=== PATIENT | female | born 1955 | race African-American/Black ===

== ENCOUNTER 2016-12-29 17:34 | Observation (INO) ==
--- NOTE | 2016-12-29 18:09 | CT Report ---
Referring physician: ED Temporary Physician Exam: CT brain without contrast Date: 12/29/2016 Comparison: None Reason: Left facial arm and leg numbness with tingling Technique: Axial images of the head were obtained without the use of contrast. Total DLP was 1829.20 mGy*cm. Findings: No hydrocephalus or midline shift is present. There is no evidence of an acute infarction, recent intracranial hemorrhage or abnormal mass effect. Diffuse cerebral atrophy atrophy. The osseous structures appear intact. The mastoid air cells and visualized paranasal sinuses are clear. Impression: No acute intracranial abnormality is identified. Minimal cerebral atrophy. The CT exam was performed using one or more of the following dose reduction techniques: Automated exposure control and adjustment of the mA and/or kV according to patient size. PROCEDURE INTERPRETED AT [facility] DEPARTMENT OF RADIOLOGY Final Report Signed by: Dr. Ivelisse Yun
[2016-12-29] MEDS ORDERED: ASPIRIN 325 MG TABLET PO STA (19:21)
[2016-12-29] MEDS ORDERED: ASPIRIN 325 MG TABLET ONE (19:34)
--- NOTE | 2016-12-29 19:53 | XRay Report ---
Portable chest Date: 12/29/2016 Clinical history: Cardiomegaly Comparison: 01/31/2016 Technique: Portable AP sitting chest Findings: The heart is larger in size with uncoiling of the aorta. Progressive parenchymal findings at the lung bases with prominent pulmonary vasculature. Degenerative changes are noted. Impression: Progressive cardiomegaly with findings consistent with mild CHF. PROCEDURE INTERPRETED AT [facility] DEPARTMENT OF RADIOLOGY Final Report Signed by: Dr. Ivelisse Yun
[2016-12-29 19:59] LABS: Basophils % 0.3 % (0.0-0.8); Eosinophils # 0.1 10*3/uL (0.0-0.87); Eosinophils % 1.2 % (0.00-10.9); Hematocrit 43.6 VOL% (35.7-47.0); Hemoglobin 14.9 GM/DL (12.0-16.0); Immature Granulocytes % 0.3 %; Immature Granulocytes Absolute 0.04 #; Lymphocytes # 3.9 10*3/uL (1.4-4.0); Lymphocytes % 34.2 % (21.3-54.2); Mean Corpuscular HGB Conc 34.2 GM/DL (32-36); Mean Corpuscular Hemoglobin 29 PG (27-34); Mean Corpuscular Volume 85.5 FL (87-102); Mean Platelet Volume 10.6 FL (9.6-12.0); Monocytes # 0.8 10*3/uL (0.11-0.8); Monocytes % 6.5 % (1.7-12.7); Neutrophils # 6.6 10*3/uL (1.4-7.4); Neutrophils % 57.5 % (38.7-73.9); Platelet Count 203 T/CUMM (130-400); Red Cell Distribution Width 13.5 % (9.3-17.3); White Blood Count 11.5 T/CUMM (4-12)
[2016-12-29 20:05] LABS: Alanine Aminotransferase 22 U/L (13-56); Albumin 3.5 G/DL (3.4-5.0); Alkaline Phosphatase 103 U/L (45-117); Aspartate Amino Transferase 20 U/L (0-37); Blood Urea Nitrogen 9 MG/DL (7-18); Calcium 9.1 MG/DL (8.5-10.1); Glucose 108 MG/DL (74-106); Osmolality,Calculated 276.5 MOS/KG (273-304); Potassium 3.5 MMOL/L (3.5-5.1); Sodium 139 MMOL/L (136-145)
[2016-12-29 20:06] LABS: PT Patient Result 10.6 SECS; Partial Thromboplastin Time 28.2 SECS (0-40)
--- NOTE | 2016-12-29 20:13 | Emergency Department Note ---
Fabien Hobson Brittany, am scribing for, and in the presence of, Bjorn Zimmerman MD 19:27. Erasmo Hobson Charles R, MD, personally performed the services described in this documentation, ascribed by Rossy Conn in my presence, and it is both accurate and complete . Arrival - Arrival Chief Complaint: Neuro Stated Complaint: numbness on sides ED Nursing Triage Note: Pt c/o Numbness/tingling in her left face, arm, and leg since 1345. Mode of Arrival: Ambulatory Limitations: No Limitations Source: Patient - History of Present Illness HPI Narrative: This is a 61 y/o black female, who presents to the ED for further neurological evaluation. She states today at 1345 she started to experience left sided facial numbness, LLE and LUE numbness. She denies a Hx of CVA. Pt denies any pain but reports her left leg "feels as if it is not there." Pt has no other complaints/pain in the ED at this time. Pt has a PMHx of HTN, anxiety, thyroid disorder, dyslipidemia, NIDDM, and cholelithiasis. Pt has had a hysterectomy. Pt has a family medical Hx of diabetes. Pt is a current every day smoker. Onset (ago): hour(s) (Started at 1345 today) Consistency: constant Severity: moderate Allergies/Adverse Reactions: Allergies Allergy/AdvReac Type Severity Reaction Status Date / Time No Known Allergies Allergy Verified 01/31/16 13:38 Home Medications: Home Medications Medication Instructions Recorded Confirmed Type Lisinopril/Hydrochlorothiazide 1 each PO DAILY 03/14/15 12/29/16 History [Lisinopril-Hctz 20-12.5 mg Tab] Citalopram Hydrobromide 10 mg PO DAILY 12/29/16 12/29/16 History [Citalopram HBr] Lovastatin 40 mg PO QPM 12/29/16 12/29/16 History Metformin HCl 1,000 mg PO BID W/MEALS 12/29/16 12/29/16 History glipiZIDE [Glipizide ER] 10 mg PO BID 12/29/16 12/29/16 History sitaGLIPtin [Januvia] 100 mg PO DAILY 12/29/16 12/29/16 History Review of System - Review of System 12 point system: reviewed and no additional remarkable complaints except as stated - Review of System Neurological: Present: weakness (Left sided facial, LLE, and LUE weakness), numbness (Left sided facial, LLE, and LUE numbness) Medical,Surgical,& Family Hx - Medical History Cardio: History of: Hypertension Psychological: History of: Anxiety Disorders Endocrine: History of: Diabetes Mellitus (NIDDM), Dyslipidemia, Thyroid Disorder (Hyperthyroid) Gastrointestinal: History of: GI Problems (cholelithiasis) - Surgical History Cardiac Surgeries: Patient Denies: Cardiac Catheterization Abdominal Surgeries: Patient denies: Abdominal Surgery Reproductive Surgeries: Surgical HX of;: Hysterectomy - Family History Family History: Reports;: Family Diabetes - Social History Smoking Status: Current every day smoker Exam Vital Signs: Vital Signs Temperature 98.0 F 12/29/16 17:45 Pulse Rate 74 12/29/16 18:30 Respiratory Rate 17 12/29/16 18:30 Blood Pressure 132/69 12/29/16 18:30 O2 Sat by Pulse Oximetry 98 12/29/16 18:30 - General General appearance: alert, in no apparent distress - Head Head exam: Present: atraumatic, normocephalic, normal inspection - Eye Eye exam: Present: normal appearance, PERRL, EOMI. Absent: nystagmus, miosis, mydriasis - ENT ENT exam: Present: normal exam, normal oropharynx, mucous membranes moist, TM's normal bilaterally, normal external ear exam - Neck Neck exam: Present: normal inspection, full ROM, trachea midline. Absent: tenderness, meningismus, lymphadenopathy, thyromegaly - Chest Chest inspection: Present: normal inspection, symmetric chest wall rise. Absent : tenderness, rash, abscess - Respiratory Respiratory exam: Present: rhonchi (Bilateral rhonic). Absent: normal lung sounds bilaterally, prolonged expiratory phase, rales, respiratory distress, stridor, wheezes - Cardiovascular Cardiovascular exam: Present: regular rate, normal rhythm, normal heart sounds. Absent: murmur, rubs, gallop, clicks, JVD - Abdominal Exam Abdominal exam: Present: soft, normal bowel sounds. Absent: distention, tenderness, guarding, rebound, rigidity - Rectal Exam Rectal exam: Present: deferred - Extremities Exam Extremities exam: Present: normal inspection, full ROM, normal capillary refill. Absent: tenderness, pedal edema, joint swelling, calf tenderness - Back Exam Back exam: Present: normal inspection, full ROM. Absent: tenderness, muscle spasm, rashes - Neurological Exam Neurological exam: Present: alert, oriented X3, CN II-XII intact, reflexes normal, other (-Babinski sign ). Absent: motor sensory deficit - Psychiatric Psychiatric exam: Present: normal affect, normal mood. Absent: depressed, agitated, anxious, manic - Skin Skin exam: Present: warm, dry, intact, normal color. Absent: rash, cyanosis, diaphoresis, erythema, pallor, mottled Course - Consultations Consultation #1: Dr Jose thinks pt should be admitted to the hospital for further workup Time: 20:12 Consultation #2: Hospitalist will admit patient Time: 20:44 Results - Labs CBC & BMP: 12/29/16 18:34 12/29/16 18:34 Lab Results: I have reviewed the patients labs - Diagnostic Findings Procedure: Chest x-ray: report reviewed by me (Progressive cardiomegaly with findings consistent with mild CHF.), CT: report reviewed by me (Head CT: Nothing acute. Minimla cerebral atrophy. ) Disposition Clinical Impression: Transient cerebral ischemia, Hypertension, Essential hypertension Case discussed with: patient, patient's family Disposition: Still a Patient Condition: Stable Time of Disposition: 20:45 NIH Stroke Score - Stroke Score Initial Assessment Level of Consciousness: Alert Level of Consciousness Questions: Answers Both Correctly Level of Consciousness Commands: Obeys Both Correctly Best Gaze: Normal Visual Head: No Visual Loss Facial Palsy: Normal Motor - Right Arm: No Drift Motor - Left Arm: No Drift Motor - Right Leg: No Drift Motor - Left Leg: No Drift Sensory (Pin Prick): Normal Best Language: Normal Dysarthria: Normal Extinction / Inattention (Neglect): No Neglect
[2016-12-29] MEDS ORDERED: MORPHINE 2 MG/1 ML SYRINGE IV PRN (21:34)
[2016-12-29] MEDS ORDERED: ONDANSETRON 4 MG/2 ML VIAL IV PRN (21:34)
[2016-12-29] MEDS ORDERED: DEXTROSE 50% 25 GM/50 ML VIAL IV PRN (21:34)
[2016-12-29] MEDS ORDERED: PROMETHAZINE 25 MG/1 ML VIAL IM PRN (21:34)
[2016-12-29] MEDS ORDERED: GLUCAGON 1 MG VIAL IM PRN (21:34)
[2016-12-29] MEDS ORDERED: ACETAMINOPHEN 325 MG TABLET PO PRN (21:34)
[2016-12-29] MEDS ORDERED: BISACODYL 5 MG TABLET PO PRN (21:34)
--- NOTE | 2016-12-29 21:38 | Hospitalist History & Physical ---
Assessment and Plan (1) TIA (transient ischemic attack) Status: Acute Current Visit: Yes Qualifiers: Transient cerebral ischemia type: unspecified Qualified Code(s): G45.9 - Transient cerebral ischemic attack, unspecified (2) Type 2 diabetes mellitus Status: Acute Current Visit: Yes Qualifiers: Diabetes mellitus complication status: with unspecified complications Diabetes mellitus skilled nursing insulin use: without skilled nursing use Qualified Code( s): E11.8 - Type 2 diabetes mellitus with unspecified complications (3) Essential hypertension Status: Acute Current Visit: Yes (4) Smoker Status: Acute Current Visit: Yes (5) Dyslipidemia Status: Acute Assessment and plan: Plan: Observe overnight, and perform neurological workup including MRI/MRA of the brain, echo, and neurology consultation Start aspirin daily She has multiple risk factors for stroke including hypertension, diabetes, dyslipidemia and smoking. Smoking cessation was very strongly encouraged. Current Visit: Yes History of Present Illness Chief complaint: Acute onset of left upper extremity numbness and tingling this afternoon History of present illness: Ms. Olivares is a 61 year old very pleasant female with hypertension, type 2 diabetes, pack-a-day smoker, reported peripheral vascular disease (unclear if any intervention is ever been done, patient was seen at [facility] for this), who is here with left upper extremity numbness and tingling that started earlier this afternoon after she had a thyroid ultrasound. She is also noted intermittent dizziness over the last week, no falls. She states she has chronic waxing and waning numbness and tingling of the left leg, which is unchanged from baseline. She denies chest pain, palpitations, shortness of breath, headache, or visual disturbance. She states her symptoms have lessened however the numbness and tingling are still present. She is right-handed. She has no known coronary artery disease or CHF. Home Medications Medication Instructions Recorded Confirmed Type Lisinopril/Hydrochlorothiazide 1 each PO DAILY 03/14/15 12/29/16 History [Lisinopril-Hctz 20-12.5 mg Tab] Citalopram Hydrobromide 10 mg PO DAILY 12/29/16 12/29/16 History [Citalopram HBr] Lovastatin 40 mg PO QPM 12/29/16 12/29/16 History Metformin HCl 1,000 mg PO BID W/MEALS 12/29/16 12/29/16 History glipiZIDE [Glipizide ER] 10 mg PO BID 12/29/16 12/29/16 History sitaGLIPtin [Januvia] 100 mg PO DAILY 12/29/16 12/29/16 History Allergies Allergy/AdvReac Type Severity Reaction Status Date / Time No Known Allergies Allergy Verified 01/31/16 13:38 Medical,Surgical,& Family Hx - Medical History Cardio: History of: Hypertension Psychological: History of: Anxiety Disorders Endocrine: History of: Diabetes Mellitus (NIDDM), Dyslipidemia, Thyroid Disorder (Hyperthyroid) - Surgical History Abdominal Surgeries: Surgical HX of: Cholecystectomy Reproductive Surgeries: Surgical HX of;: Hysterectomy - Family History Family History: Reports;: Family Diabetes - Social History Smoking Status: Current every day smoker Have you smoked in the last 12 months: Yes Time spent discussing smoking cessation with patient: 3 to 10 minutes Frequency of Alcohol Use: None Type of Drug Use: None Marital Status: Unknown Functional capacity: independent ambulation Review of systems: A 12 point review of systems is negative except as specified in the HPI Exam - Constitutional Vitals: Period Temp Pulse Resp BP Sys/Ceja Pulse Ox Last 24 Hr 98.0 F-98.0 F 74-78 16-18 132-135/69-79 97-99 Exam: EXAM: CONSTITUTIONAL: non toxic, NAD HEENT: NC, AT, OP benign, MARY, EOMI CV: RRR no m/g/r RESP: clear B/L, no w/r/r GI: abd soft, NT, ND, +bowel sounds INTEGUMENTARY: no lesions or rash EXTREMITIES: no c/c/e NEURO: Tongue deviation to the right, mildly decreased left upper extremity strength, no dysarthria, cranial nerves intact PSYCH: unremarkable, A/O x3 Results - Labs CBC & BMP: 12/29/16 18:34 12/29/16 18:34 Lab Results: I have reviewed the past 24 hour labs - Diagnostic Findings Procedure: Chest x-ray: image reviewed by me, report reviewed by me, CT: image reviewed by me, report reviewed by me Quality Measures - Stroke Onset of Symptoms Date: 12/29/16 Onset of Symptoms Time: 13:00 Symptom Onset Unknown: No
[2016-12-29] MEDS ORDERED: ENOXAPARIN 40 MG/0.4 ML SYRINGE SUBCUT SCH (22:00)
[2016-12-29 22:03] LABS: Apearance,Urine Slightly Hazy (Clear); Bacteria,Urine Few /HPF (Few); Bilirubin,Urine Negative (Negative); Blood, Urine Negative (Negative); Glucose,Urine (UA) Negative (Negative); Ketones,Urine Negative (Negative); Mucus,Urine Few /LPF (Occasional); Nitrite,Urine Negative (Negative); Protein,Urine Negative; Squamous Epithelial Cell,Urine Occasional /HPF (0-10); Urine Color Yellow (Yellow); Urine Specific Gravity 1.011 (1.001-1.035); Urine Urobilinogen < 2.0 EU/DL (0.2-1.0); WBC,Urine 1 /HPF (0-6)
[2016-12-29 22:20] LABS: Barbiturates Screen,Urine Negative (Negative); Benzodiazepines Screen,Urine Negative (Negative); Cannabinoid Screen,Urine Negative (Negative); Opiate Screen,Urine Negative (Negative); Phencyclidine Screen,Urine Negative (Negative)
[2016-12-29] MEDS ORDERED: LORazepam 1 MG TABLET PO ONE (23:09)
[2016-12-30 04:52] LABS: Basophils % 0.4 % (0.0-0.8); Eosinophils # 0.1 10*3/uL (0.0-0.87); Eosinophils % 1.5 % (0.00-10.9); Hematocrit 40.6 VOL% (35.7-47.0); Hemoglobin 13.8 GM/DL (12.0-16.0); Immature Granulocytes % 0.4 %; Immature Granulocytes Absolute 0.03 #; Lymphocytes # 2.7 10*3/uL (1.4-4.0); Lymphocytes % 31.9 % (21.3-54.2); Mean Corpuscular Hemoglobin 29 PG (27-34); Mean Corpuscular Volume 84.6 FL (87-102); Mean Platelet Volume 9.5 FL (9.6-12.0); Monocytes # 0.6 10*3/uL (0.11-0.8); Monocytes % 6.6 % (1.7-12.7); Neutrophils % 59.2 % (38.7-73.9); Platelet Count 179 T/CUMM (130-400); Red Cell Distribution Width 13.4 % (9.3-17.3); White Blood Count 8.5 T/CUMM (4-12)
[2016-12-30 05:32] LABS: Calcium 8.6 MG/DL (8.5-10.1); Osmolality,Calculated 278.4 MOS/KG (273-304); Potassium 3.3 MMOL/L (3.5-5.1); Risk Ratio 2.94; Thyroid Stimulating Hormone 0.113 uIU/ml (0.358-3.74); VLDL CHOLESTEROL 29.8 MG/DL
[2016-12-30] MEDS ORDERED: metFORMIN 500 MG TABLET PO SCH (08:00)
[2016-12-30] MEDS: INSULIN REGULAR 100 UNIT/ML SUBCUT SCH ×2 (08:24→13:32)
[2016-12-30] MEDS ORDERED: LORazepam 1 MG TABLET PO ONE (09:00)
[2016-12-30] MEDS ORDERED: LISINOPRIL/HCTZ 20-12.5 MG TABLET PO SCH (09:00)
[2016-12-30] MEDS ORDERED: sitaGLIPtin 100 MG TABLET PO SCH (09:00)
[2016-12-30] MEDS ORDERED: ASPIRIN EC 325 MG TABLET PO SCH (09:00)
[2016-12-30] MEDS ORDERED: CITALOPRAM 20 MG TABLET PO SCH (09:00)
[2016-12-30] MEDS ORDERED: PANTOPRAZOLE 40 MG TABLET PO SCH (09:00)
[2016-12-30] MEDS ORDERED: POTASSIUM CHLORIDE 20 MEQ TABLET PO ONE (09:40)
--- NOTE | 2016-12-30 13:20 | Hospitalist Progress Note ---
Assessment and Plan (1) Transient cerebral ischemia Status: Acute Assessment and plan: 1)TIA- MRi pending and also neuro consult. On asa, control DM and HTN, on statin. counselled again for 5 minutes about tobacco cessation. 2)DM-controlled. [id number] 3)HTN-controlled 4)high cholesterol-goal LDL is under 70 Current Visit: Yes (2) Diabetes mellitus Status: Acute Current Visit: No (3) Essential hypertension Status: Acute Current Visit: Yes (4) Smoker Status: Acute Current Visit: Yes (5) Dyslipidemia Status: Acute Current Visit: Yes Hospitalist: Subjective Interval history: Mrs Olivares is feeling back to normal this morning. She is waiting on MRI and to see DR Arroyo. Her numbness and tingling in her left arm has resolved. She denies any other focal neuro change Exam - Constitutional Vitals: Period Temp Pulse Resp BP Sys/Ceja Pulse Ox Last 24 Hr 97.6 F-98.9 F 65-92 16-20 110-135/69-79 92-99 General appearance: no acute distress, over weight - Eye Eye exam: Present: EOMI. Absent: scleral icterus - Respiratory Respiratory exam: Present: clear to auscultation bilaterally - Cardiovascular Cardiovascular exam: Present: regular rate and rhythm - GI/Abdominal GI/Abdominal exam: Present: normal bowel sounds, soft. Absent: tenderness - Extremities Exam Extremities exam: Absent: edema Results - Labs CBC & BMP: 12/30/16 04:30 12/30/16 04:30 Quality Measures - Stroke Onset of Symptoms Date: 12/29/16 Onset of Symptoms Time: 13:00 Symptom Onset Unknown: No
--- NOTE | 2016-12-30 13:54 | Magnetic Resonance Report ---
Exam: MR angio head wo con (COW) Date: 12/30/2016 4:00 AM Indication: TIA Comparison: CT brain 12/29/2016 Technical 1.5 Carlyn magnet. Axial 3-D imaging obtained with 3-D reproduction images of the [place]. Exam performed without contrast. Findings: The anterior cerebral middle cerebral arteries and posterior cerebral arteries are demonstrated without obvious aneurysm. The anterior communicating arteries faintly seen. The posterior communicating arteries or poorly delineated. The basilar artery is intact.. The internal carotid arteries are otherwise intact. Impression: 1. No obvious aneurysm or high-grade stenosis or occlusion present. PROCEDURE INTERPRETED AT [facility] DEPARTMENT OF RADIOLOGY Final Report Signed by: Dr. Maik Reyes
--- NOTE | 2016-12-30 13:58 | Magnetic Resonance Report ---
Exam: MR angio neck wo/w con Date: 12/30/2016 Indication: TIA Comparison: None Technical 1.5 Carlyn magnet 3-D axial and coronal imaging obtained with and without 20 cc of Dotarem. 3-D reproduction images were obtained. Findings: The brachiocephalic artery right and left common carotid arteries are unremarkable. The subclavian arteries are intact. The vertebral arteries are demonstrated with a dominant left vertebral artery present. The right common carotid artery, internal and external carotid artery demonstrated. No significant high-grade stenosis or dilatation of the ICA noted. The distal vessel measures 4.7 mm. The left common carotid artery internal and external carotid are demonstrated without high-grade stenosis or occlusion. The distal vessel measures 4.7 mm. Mild plaque within the takeoff of the left ICA present. Impression: 1. No high-grade stenosis or occlusion of the internal carotid arteries with mild plaque present left greater than right. These measure stenosis is less than 50%. 2. Dominant left vertebral artery. PROCEDURE INTERPRETED AT [facility] DEPARTMENT OF RADIOLOGY Final Report Signed by: Dr. Maik Reyes
--- NOTE | 2016-12-30 14:02 | Magnetic Resonance Report ---
Exam: MR head/brain w and wo con Date: 12/30/2016 Comparison: None Indication: TIA Technical: 1.5 Carlyn magnet Axial T1 pre-and postcontrast, ADC, DWI, FLAIR, gradient echo and FSE T2 Sagittal T1 precontrast, FLAIR Coronal postcontrast T1 Contrast: 20 cc Dotarem Findings: Exam reveals no acute ADC/ diffusion imaging. The brainstem, cerebellum exhibit normal signal characteristics. The cerebral hemispheres exhibit abnormal signal characteristics. Exam reveals punctate and blotchy areas of abnormal signal in the periventricular subcortical white matter regions bilaterally extending into the centrum semiovale areas and basal ganglia regions. The corpus callosum is unremarkable. The seventh and eighth cranial nerves and cerebral pontine angles are intact. The pituitary gland, infundibulum and optic chiasm are intact. The paranasal sinuses exhibit abnormal signal characteristics. There is mild inflammation within the frontal sinuses in the ethmoid air cells anteriorly. Sphenoid maxillary sinuses are unremarkable. The mastoid sinuses are unremarkable. The globes and intra-and extraconal spaces are unremarkable. Impression: 1. Minimal small vessel change and/or old lacunar infarction involving the periventricular subcortical white matter regions slightly more prominent right than the left centrum semiovale area. 2. No acute hemorrhage infarction or mass effect. 3. Minimal inflammation in the ethmoid sinuses and frontal sinuses bilaterally PROCEDURE INTERPRETED AT [facility] DEPARTMENT OF RADIOLOGY Final Report Signed by: Dr. Maik Reyes
--- NOTE | 2016-12-30 14:30 | ECHO Report ---
Yvette Olivaresline Exam Date: 12/30/2016 09:03 Referring Physician: Technologist: ginger Meza ARDMS, RVT Age: 61 Ht (in): 66 Wt (lb): 187 Gender: F Exam [facility]: [facility] Echo Indications: Essential (primary) hypertension, CVA, Dyslipidemia, Diabetes, TIA BP: 110 / 69 HR: 92 Rhythm: Sinus Technical Quality: Fair IMPRESSIONS Left ventricular ejection fraction is estimated at 60 %. Grade I/IV diastolic dysfunction (abnormal relaxation filling pattern), normal to mildly elevated filling pressures. The right ventricle is normal in size and function. The right atrium is normal in size. The left atrium is normal in size. Morphologically normal mitral valve. No mitral valve regurgitation. Aortic valve sclerosis. Trace aortic valve regurgitation. Mild TR . PAP40 mmHG. Pulmonic valve not well visualized. Normal pericardium without effusion. Normal ascending aorta dimension. No LV or LA clot seen. MEASUREMENTS (Male / Female) Normal Values 2D ECHO LV Diastolic Diameter PLAX 4.4 cm 4.2 - 5.9 / 3.9 - 5.3 cm LV Systolic Diameter PLAX 2.1 cm LV Fractional Shortening PLAX 51.4 % IVS Diastolic Thickness 1.0 cm 0.6 - 1.0 / 0.6 - 0.9 cm LVPW Diastolic Thickness 1.1 cm 0.6 - 1.0 / 0.6 - 0.9 cm RV Internal Dim ED PLAX 3.0 cm Aortic Root Diameter 3.3 cm LA Systolic Diameter LX 3.4 cm 3.0 - 4.0 / 2.7 - 3.8 cm FINDINGS Left Ventricle Normal left ventricular cavity size. Mild left ventricular hypertrophy. Grade I/IV diastolic dysfunction (abnormal relaxation filling pattern), normal to mildly elevated filling pressures. Left ventricular ejection fraction is estimated at 60 %. Right Ventricle The right ventricle is normal in size and function. Right Atrium The right atrium is normal in size. Left Atrium The left atrium is normal in size. Mitral Valve Morphologically normal mitral valve. No mitral valve regurgitation. Aortic Valve Aortic valve sclerosis. Trace aortic valve regurgitation. Tricuspid Valve Morphologically normal tricuspid valve. Mild TR .PAP40 mmHG. Pulmonic Valve Pulmonic valve not well visualized. Pericardium Normal pericardium without effusion. Aorta Normal ascending aorta dimension. Noah Diego (Electronically Signed) Final Date: 30 December 2016 14:29
--- NOTE | 2016-12-30 15:41 | Neurology Consult Note ---
History of Present Illness History of present illness: Ms. Olivares is a 61 year old right-handed -[place] lady with past medical history significant for hypertension, type 2 diabetes, pack-a-day smoker, peripheral vascular disease admitted to the hospital with left upper extremity numbness and tingling that started yesterday afternoon after she had a thyroid ultrasound. She is also noted intermittent dizziness over the last week, no falls. She states she has chronic waxing and waning numbness and tingling of the left leg, which is unchanged from baseline. She denies chest pain, palpitations, shortness of breath, headache, or visual disturbance. She states that the symptoms have resolved completely. She has no known coronary artery disease or CHF. MRI of the brain, carotid ultrasound and echocardiogram are all within normal limits. Lipid profile is normal. Home Medications Medication Instructions Recorded Confirmed Type Lisinopril/Hydrochlorothiazide 1 each PO DAILY 03/14/15 12/29/16 History [Lisinopril-Hctz 20-12.5 mg Tab] Citalopram Hydrobromide 10 mg PO DAILY 12/29/16 12/29/16 History [Citalopram HBr] Lovastatin 40 mg PO QPM 12/29/16 12/29/16 History Metformin HCl 1,000 mg PO BID W/MEALS 12/29/16 12/29/16 History glipiZIDE [Glipizide ER] 10 mg PO BID 12/29/16 12/29/16 History sitaGLIPtin [Januvia] 100 mg PO DAILY 12/29/16 12/29/16 History Allergies Allergy/AdvReac Type Severity Reaction Status Date / Time No Known Allergies Allergy Verified 01/31/16 13:38 12 point system: reviewed and no additional remarkable complaints except as stated Medical,Surgical,& Family Hx - Medical History Cardio: History of: Hypertension Psychological: History of: Anxiety Disorders Endocrine: History of: Diabetes Mellitus (NIDDM), Dyslipidemia, Thyroid Disorder (Hyperthyroid) Gastrointestinal: History of: GI Problems (cholelithiasis) - Surgical History Cardiac Surgeries: Patient Denies: Cardiac Catheterization Abdominal Surgeries: Surgical HX of: Cholecystectomy Patient denies: Abdominal Surgery Reproductive Surgeries: Surgical HX of;: Hysterectomy - Family History Family History: Reports;: Family Diabetes - Social History Smoking Status: Current every day smoker Frequency of Alcohol Use: None Type of Drug Use: None Exam - Constitutional Vitals: Period Temp Pulse Resp BP Sys/Ceja Pulse Ox Last 24 Hr 97.0 F-98.9 F 65-92 16-20 110-135/61-79 92-99 Exam: GENERAL: Patient is in no acute distress. NECK: Neck is supple. There is no JVD. No carotid bruits present. No thyroid masses. CVS: First and second heart sounds are normal. There is no S3 present. Regular rate and rhythm. RESPIRATORY: Lungs are clear to auscultation without any rales or rhonchi. ABDOMEN: Soft and non-tender. Bowel sounds are present. There is no hepatosplenomegaly. EXT: There is no palpable edema. Peripheral pulses are present. Skin: No rashes Central Nervous system: General: Alert, awake and Oriented x 3 Speech: Fluent Comprehension: Intact and normal Facial expressions: Normal Cranial Nerves: CN1/Olfactory: Normal CN II/ Optic: Normal, Visual Head unreliable CN III, and : MARY & EOMI CN V: Normal & intact CN VII: face is symmetric CNVIII: Normal CN XI/X/XI/XII: Intact and Normal Motor: Bulk and Tone is normal. Strength in the right 5/5 Strength in the left 5/5 Sensory: Grossly intact for all the modalities of PP, LT and temp sense Reflexes: 1+ and symmetrical Cerebellar function: Normal finger to nose and heel to murcia testing. Toes: Equivocal Gait: Slightly broad-based Results - Labs CBC & BMP: 12/30/16 04:30 12/30/16 04:30 Assessment and Plan (1) TIA (transient ischemic attack) Status: Acute Assessment and plan: Start and continue aspirin 81 mg p.o. daily Discussed all the risk factors of the stroke with the patient Okay to go home from neuro standpoint Follow-up in 1 month with at [facility] Thank you for the consult Sign off please call as needed Current Visit: Yes Qualifiers: Transient cerebral ischemia type: unspecified Qualified Code(s): G45.9 - Transient cerebral ischemic attack, unspecified Specialty Discharge - Follow Up or Referrals Follow up with: Dylan Ulloa MD [Physician] - 2 Weeks (At [facility])
--- NOTE | 2016-12-30 16:22 | Discharge Summary ---
Hospital Course - Hospital Course Hospital Course: Mrs Olivares had a TIA. Her symptoms have resolved, and her MRI brain MRA head and neck and echo were unremarkable. She will see Dr Ulloa in 2 weeks. She should start asa and follow low cholesterol diet in addition to Mevacor. - Time spent with patient Time with patient DS: Less than 30 minutes Diagnosis - Discharge Diagnosis (1) Transient cerebral ischemia Status: Resolved (2) Diabetes mellitus Status: Chronic (3) Essential hypertension Status: Chronic (4) Smoker Status: Chronic (5) Dyslipidemia Status: Chronic Specialty Discharge - Follow Up or Referrals Follow up with: Dylan Ulloa MD [Physician] - 01/14/17 9:45 am (At [facility]) Your, PCP [Other] (1 week) Discharge Plan - Discharge Data Disposition: Disch To Home/Self Care Condition at Discharge: Stable Discharge Diet: diabetic diet, heart healthy, low fat, low cholesterol Activity: resume usual activities as tolerated - Discharge Medications New Aspirin EC Tab 325 mg PO DAILY tablet Continue Lisinopril/Hydrochlorothiazide [Lisinopril-Hctz 20-12.5 mg Tab] 1 each PO DAILY glipiZIDE [Glipizide ER] 10 mg PO BID Metformin HCl 1,000 mg PO BID W/MEALS sitaGLIPtin [Januvia] 100 mg PO DAILY Lovastatin 40 mg PO QPM Citalopram Hydrobromide [Citalopram HBr] 10 mg PO DAILY - Follow Up or Referral Follow Up: Dylan Ulloa MD [Physician] - 01/14/17 9:45 am (At [facility]) - Forms/Instructions Instructions: Transient Ischemic Attack (DC), Chronic Hypertension (DC) Exam - Constitutional Vitals: Period Temp Pulse Resp BP Sys/Ceja Pulse Ox Last 24 Hr 97.0 F-98.9 F 65-92 16-20 110-135/61-79 92-99 General appearance: no acute distress, over weight - Head Head exam: Present: normocephalic, atraumatic - Eye Eye exam: Present: EOMI. Absent: scleral icterus - Respiratory Respiratory exam: Present: clear to auscultation bilaterally - Cardiovascular Cardiovascular exam: Present: regular rate and rhythm - GI/Abdominal GI/Abdominal exam: Present: normal bowel sounds, soft. Absent: tenderness - Extremities Exam Extremities exam: Absent: edema - Neurological Exam Neurological exam: Present: alert, oriented X3, CN II-XII intact, reflexes normal. Absent: motor sensory deficit - Skin Skin exam: Present: warm, dry Discharge Results Labs on day of discharge: Labs from last 24 hours 12/30/16 12/30/16 12/30/16 13:26 07:29 04:30 WBC RBC Hgb Hct MCV MCH MCHC RDW Plt Count MPV Neut % (Auto) Lymph % (Auto) Stanton % (Auto) Eos % (Auto) Baso % (Auto) Neut # (Auto) Lymph # (Auto) Stanton # (Auto) Eos # (Auto) Baso # (Auto) Immature Gran % Nucleated RBC % Immature Gran # Nucleated RBCs # INR PT Patient/Control Mix Circ Anticoag PTT Sodium Potassium Chloride Carbon Dioxide Anion Gap BUN Creatinine GFR Calculation BUN/Creatinine Ratio Glucose POC Glucose 107 H 171 H Hemoglobin A1c 8.4 H Calculated Osmolality Calcium Magnesium Total Bilirubin AST ALT Alkaline Phosphatase Troponin I Total Protein Albumin Globulin Albumin/Globulin Ratio Triglycerides Cholesterol LDL Cholesterol VLDL Cholesterol HDL Cholesterol Heart Disease Risk Ratio Free T4 TSH 3rd Generation Urine Color Urine Appearance Urine pH Ur Specific [place] Urine Protein Urine Glucose (UA) Urine Ketones Urine Blood Urine Nitrate Urine Bilirubin Urine Urobilinogen Urine Leukocytes Urine WBC Ur Squamous Epith Cells Urine Bacteria Urine Mucus Ur Culture Indicated? Urine Opiates Screen Ur Barbiturates Screen Ur Phencyclidine Scrn U Amphetamine/Methamph U Benzodiazepines Scrn U Cocaine Metab Screen U Cannabinoids Screen Serum Alcohol 12/30/16 12/30/16 12/30/16 04:30 04:30 04:30 WBC 8.5 RBC 4.80 Hgb 13.8 Hct 40.6 MCV 84.6 L MCH 29 MCHC 34.0 RDW 13.4 Plt Count 179 MPV 9.5 L Neut % (Auto) 59.2 Lymph % (Auto) 31.9 Stanton % (Auto) 6.6 Eos % (Auto) 1.5 Baso % (Auto) 0.4 Neut # (Auto) 5.0 Lymph # (Auto) 2.7 Stanton # (Auto) 0.6 Eos # (Auto) 0.1 Baso # (Auto) 0.0 Immature Gran % 0.4 Nucleated RBC % 0.0 Immature Gran # 0.03 Nucleated RBCs # 0.00 INR PT Patient/Control Mix Circ Anticoag PTT Sodium 140 Potassium 3.3 L Chloride 102 Carbon Dioxide 31 Anion Gap 10.3 BUN 7 Creatinine 0.50 L GFR Calculation 135 BUN/Creatinine Ratio 14.00 Glucose 128 H POC Glucose Hemoglobin A1c Calculated Osmolality 278.4 Calcium 8.6 Magnesium 2.0 Total Bilirubin AST ALT Alkaline Phosphatase Troponin I Total Protein Albumin Globulin Albumin/Globulin Ratio Triglycerides 149 Cholesterol 191 LDL Cholesterol 98.0 VLDL Cholesterol 29.8 HDL Cholesterol 65 H Heart Disease Risk Ratio 2.94 Free T4 1.05 TSH 3rd Generation 0.113 L Urine Color Urine Appearance Urine pH Ur Specific [place] Urine Protein Urine Glucose (UA) Urine Ketones Urine Blood Urine Nitrate Urine Bilirubin Urine Urobilinogen Urine Leukocytes Urine WBC Ur Squamous Epith Cells Urine Bacteria Urine Mucus Ur Culture Indicated? Urine Opiates Screen Ur Barbiturates Screen Ur Phencyclidine Scrn U Amphetamine/Methamph U Benzodiazepines Scrn U Cocaine Metab Screen U Cannabinoids Screen Serum Alcohol 12/29/16 12/29/16 12/29/16 21:48 21:48 18:34 WBC RBC Hgb Hct MCV MCH MCHC RDW Plt Count MPV Neut % (Auto) Lymph % (Auto) Stanton % (Auto) Eos % (Auto) Baso % (Auto) Neut # (Auto) Lymph # (Auto) Stanton # (Auto) Eos # (Auto) Baso # (Auto) Immature Gran % Nucleated RBC % Immature Gran # Nucleated RBCs # INR PT Patient/Control Mix Circ Anticoag PTT Sodium Potassium Chloride Carbon Dioxide Anion Gap BUN Creatinine GFR Calculation BUN/Creatinine Ratio Glucose POC Glucose Hemoglobin A1c Calculated Osmolality Calcium Magnesium Total Bilirubin AST ALT Alkaline Phosphatase Troponin I < 0.015 Total Protein Albumin Globulin Albumin/Globulin Ratio Triglycerides Cholesterol LDL Cholesterol VLDL Cholesterol HDL Cholesterol Heart Disease Risk Ratio Free T4 TSH 3rd Generation Urine Color Yellow Urine Appearance Slightly hazy Urine pH 5.0 Ur Specific [place] 1.011 Urine Protein Negative Urine Glucose (UA) Negative Urine Ketones Negative Urine Blood Negative Urine Nitrate Negative Urine Bilirubin Negative Urine Urobilinogen < 2.0 H Urine Leukocytes Negative Urine WBC 1 Ur Squamous Epith Cells Occasional Urine Bacteria Few Urine Mucus Few Ur Culture Indicated? Not indicated Urine Opiates Screen Negative Ur Barbiturates Screen Negative Ur Phencyclidine Scrn Negative U Amphetamine/Methamph Negative U Benzodiazepines Scrn Negative U Cocaine Metab Screen Negative U Cannabinoids Screen Negative Serum Alcohol 12/29/16 12/29/16 12/29/16 18:34 18:34 18:34 WBC 11.5 RBC 5.10 Hgb 14.9 Hct 43.6 MCV 85.5 L MCH 29 MCHC 34.2 RDW 13.5 Plt Count 203 MPV 10.6 Neut % (Auto) 57.5 Lymph % (Auto) 34.2 Stanton % (Auto) 6.5 Eos % (Auto) 1.2 Baso % (Auto) 0.3 Neut # (Auto) 6.6 Lymph # (Auto) 3.9 Stanton # (Auto) 0.8 Eos # (Auto) 0.1 Baso # (Auto) 0.0 Immature Gran % 0.3 Nucleated RBC % 0.0 Immature Gran # 0.04 Nucleated RBCs # 0.00 INR 1.0 PT Patient/Control Mix 10.6 Circ Anticoag PTT 28.2 Sodium 139 Potassium 3.5 Chloride 100 Carbon Dioxide 30 Anion Gap 12.5 BUN 9 Creatinine 0.60 GFR Calculation 126 BUN/Creatinine Ratio 15.00 Glucose 108 H POC Glucose Hemoglobin A1c Calculated Osmolality 276.5 Calcium 9.1 Magnesium Total Bilirubin 0.40 AST 20 ALT 22 Alkaline Phosphatase 103 Troponin I Total Protein 7.0 Albumin 3.5 Globulin 3.5 Albumin/Globulin Ratio 1.0 L Triglycerides Cholesterol LDL Cholesterol VLDL Cholesterol HDL Cholesterol Heart Disease Risk Ratio Free T4 TSH 3rd Generation Urine Color Urine Appearance Urine pH Ur Specific [place] Urine Protein Urine Glucose (UA) Urine Ketones Urine Blood Urine Nitrate Urine Bilirubin Urine Urobilinogen Urine Leukocytes Urine WBC Ur Squamous Epith Cells Urine Bacteria Urine Mucus Ur Culture Indicated? Urine Opiates Screen Ur Barbiturates Screen Ur Phencyclidine Scrn U Amphetamine/Methamph U Benzodiazepines Scrn U Cocaine Metab Screen U Cannabinoids Screen Serum Alcohol < 15 L DS: Provider Date of admission: 12/29/16 21:34 Primary care physician: . No PCP Attending physician on admission: Nick Doshi DO Consults: 12/29/16 21:34 Consult to Physician [CONS] Routine Comment: TIA Consulting Provider: Neeraj Arroyo When should Consulting Provider be notified: In am Consult to Specialist Group: Neurology Consult Notification Comment: LEFT MESSAGE AT 0830 Discharging clinician: Kinjal Manriquez MD
[2016-12-30 16:39] VITALS: BP 111/63
[2016-12-30] MEDS ORDERED: LOVASTATIN 20 MG TABLET PO SCH (19:00)
== END 2016-12-30 17:09 | disposition home or self-care (01) ==
LOC: N.EDINP 17:34 → N.ED 17:34 → SUATTDRO 21:34 → N.TELEN 22:14
PROVIDERS: ADMIT Internal Medicine; ATTEND Internal Medicine

== ENCOUNTER 2020-07-26 14:23 | Inpatient (IN) ==
[2020-07-26] MEDS ORDERED: NITROGLYCERIN 2% OINT 1 INCH/GM PACK TOP STA (14:46)
[2020-07-26] MEDS ORDERED: ENOXAPARIN 100 MG/ML SYRINGE SUBCUT STA (14:46)
[2020-07-26] MEDS ORDERED: ASPIRIN 325 MG TABLET PO STA (14:46)
[2020-07-26 14:55] LABS: Basophils % 0.2 % (0.0-0.8); Eosinophils # 0.1 10*3/uL (0.0-0.87); Hematocrit 43.2 VOL% (35.7-47.0); Hemoglobin 13.7 GM/DL (12.0-16.0); Immature Granulocytes % 0.4 %; Immature Granulocytes Absolute 0.04 #; Lymphocytes # 1.7 10*3/uL (1.4-4.0); Mean Corpuscular HGB Conc 31.7 GM/DL (32-36); Mean Corpuscular Volume 90.2 FL (87-102); Mean Platelet Volume 9.9 FL (9.6-12.0); Monocytes % 4.7 % (1.7-12.7); Neutrophils % 75.7 % (38.7-73.9); Platelet Count 170 T/CUMM (130-400); Red Blood Count 4.79 MC/CUMM (3.8-5.5); Red Cell Distribution Width 13.9 % (9.3-17.3); White Blood Count 9.6 T/CUMM (4-12)
[2020-07-26 15:35] LABS: PT Patient Result 10.8 SECS (9.8-11.9); Partial Thromboplastin Time 21.8 SECS (23.9-33.8)
[2020-07-26 15:37] LABS: Albumin 3.2 G/DL (3.4-5.0); Bilirubin,Total 0.5 MG/DL (0.2-1.0); Calcium 9.2 MG/DL (8.5-10.1); Potassium 3.9 MMOL/L (3.5-5.1)
[2020-07-26] MEDS ORDERED: guaiFENesin/DM ER 600-30 MG TABLET PO PRN (17:01)
[2020-07-26] MEDS ORDERED: GLUCAGON 1 MG VIAL IM PRN (17:01)
[2020-07-26] MEDS ORDERED: DEXTROSE 50% 25 GM/50 ML VIAL IV PRN (17:01)
[2020-07-26] MEDS ORDERED: hydrALAZINE 20 MG/1 ML VIAL IV PRN (17:01)
[2020-07-26] MEDS ORDERED: ACETAMINOPHEN 325 MG TABLET PO PRN (17:01)
[2020-07-26 19:05] LABS: Bilirubin,Urine Negative (Negative); Blood, Urine Negative (Negative); Glucose,Urine (UA) Negative (Negative); Ketones,Urine Negative (Negative); Nitrite,Urine Negative (Negative); Protein,Urine Negative; RBC,Urine 1 /HPF (0-4); Squamous Epithelial Cell,Urine Occasional /HPF (0-10); Urine Appearance CLEAR (Clear); Urine Color Straw (Yellow); Urine Specific Gravity 1.033 (1.001-1.035); Urine Urobilinogen < 2.0 EU/DL (0.2-1.0); WBC,Urine <1 /HPF (0-6)
[2020-07-26] MEDS ORDERED: TICAGRELOR 90 MG TABLET PO ONE (20:28)
[2020-07-26] MEDS: ROSUVASTATIN 20 MG TABLET PO SCH (21:47)
[2020-07-26] MEDS: DOCUSATE SODIUM 100 MG CAPSULE PO SCH (21:47)
[2020-07-27 05:26] LABS: Basophils % 0.3 % (0.0-0.8); Eosinophils # 0.2 10*3/uL (0.0-0.87); Eosinophils % 1.9 % (0.00-10.9); Hematocrit 43.2 VOL% (35.7-47.0); Hemoglobin 13.6 GM/DL (12.0-16.0); Immature Granulocytes % 0.5 %; Immature Granulocytes Absolute 0.04 #; Lymphocytes # 2.3 10*3/uL (1.4-4.0); Lymphocytes % 26.2 % (21.3-54.2); Mean Corpuscular HGB Conc 31.5 GM/DL (32-36); Mean Corpuscular Volume 90.6 FL (87-102); Mean Platelet Volume 9.6 FL (9.6-12.0); Monocytes % 7.6 % (1.7-12.7); Neutrophils % 63.5 % (38.7-73.9); Platelet Count 200 T/CUMM (130-400); Red Blood Count 4.77 MC/CUMM (3.8-5.5); White Blood Count 8.8 T/CUMM (4-12)
[2020-07-27 05:51] LABS: Calcium 8.9 MG/DL (8.5-10.1); Osmolality,Calculated 276.8 MOS/KG (273-304); Potassium 3.4 MMOL/L (3.5-5.1); Risk Ratio 2.95; Thyroid Stimulating Hormone 0.633 uIU/ml (0.358-3.74); VLDL CHOLESTEROL 30.4 MG/DL
[2020-07-27] MEDS ORDERED: POTASSIUM CHLORIDE 20 MEQ TABLET PO ONE ×2 (06:57→07:29)
[2020-07-27] MEDS ORDERED: NITROGLYCERIN SL 0.4 MG TABLET SL PRN (07:25)
[2020-07-27] MEDS ORDERED: ENOXAPARIN 100 MG/ML SYRINGE SUBCUT ONE (07:53)
[2020-07-27] MEDS ORDERED: SODIUM CHLORIDE 0.9% 1,000 ML IV SCH (08:00)
[2020-07-27] MEDS ORDERED: DIAZEPAM 5 MG TABLET PO ONE (08:09)
[2020-07-27] MEDS ORDERED: diphenhydrAMINE CAP 50 MG CAPSULE PO ONE (08:09)
[2020-07-27] MEDS ORDERED: ASPIRIN 325 MG TABLET PO SCH (09:00)
[2020-07-27] MEDS ORDERED: ENOXAPARIN 100 MG/ML SYRINGE SUBCUT SCH (09:00)
[2020-07-27 09:18] LABS: Troponin I 4.45 NG/ML (0.00-0.045)
[2020-07-27] MEDS: ASPIRIN CHEW 81 MG TABLET PO SCH (09:26)
[2020-07-27] MEDS: TICAGRELOR 90 MG TABLET PO SCH ×2 (09:26→20:55)
[2020-07-27] MEDS: LEVOTHYROXINE 100 MCG TABLET PO SCH (09:48)
[2020-07-27] MEDS: INSULIN REGULAR 100 UNIT/ML SUBCUT SCH ×4 (09:48→21:25)
[2020-07-27] MEDS ORDERED: HEPARIN/NACL 0.9% 2 UNITS/ML 1,000 ML IV ONE (09:56)
[2020-07-27] MEDS ORDERED: LIDOCAINE 1% 20 ML VIAL ONE (09:56)
[2020-07-27] MEDS ORDERED: HYDROmorphone 2 MG/1 ML VIAL ONE (11:34)
[2020-07-27] MEDS ORDERED: MIDAZOLAM 2 MG/2 ML VIAL ONE (11:34)
[2020-07-27] MEDS ORDERED: HEPARIN/NACL 0.9% 2 UNITS/ML 500 ML IV ONE (13:16)
[2020-07-27] MEDS ORDERED: ZALEPLON 5 MG CAPSULE PO PRN (13:43)
[2020-07-27] MEDS ORDERED: DEXTROSE 50% 25 GM/50 ML VIAL IV PRN (13:43)
[2020-07-27] MEDS ORDERED: ONDANSETRON 4 MG/2 ML VIAL IV PRN (13:43)
[2020-07-27] MEDS ORDERED: GLUCAGON 1 MG VIAL IM PRN (13:43)
[2020-07-27] MEDS: DOCUSATE SODIUM 100 MG CAPSULE PO SCH ×2 (17:45→20:55)
[2020-07-27] MEDS: PANTOPRAZOLE 40 MG TABLET PO SCH (17:46)
[2020-07-27] MEDS ORDERED: METOPROLOL TARTRATE 25 MG TABLET PO SCH (20:28)
[2020-07-27] MEDS: METOPROLOL TARTRATE 25 MG TABLET PO SCH (20:55)
[2020-07-27] MEDS: ROSUVASTATIN 20 MG TABLET PO SCH (20:55)
[2020-07-28 05:51] LABS: Basophils % 0.2 % (0.0-0.8); Eosinophils # 0.1 10*3/uL (0.0-0.87); Eosinophils % 0.9 % (0.00-10.9); Hematocrit 43.2 VOL% (35.7-47.0); Hemoglobin 13.7 GM/DL (12.0-16.0); Immature Granulocytes % 0.8 %; Immature Granulocytes Absolute 0.09 #; Lymphocytes % 17.9 % (21.3-54.2); Mean Corpuscular HGB Conc 31.7 GM/DL (32-36); Mean Corpuscular Volume 91.5 FL (87-102); Mean Platelet Volume 9.7 FL (9.6-12.0); Monocytes % 7.1 % (1.7-12.7); Neutrophils % 73.1 % (38.7-73.9); Platelet Count 208 T/CUMM (130-400); Red Blood Count 4.72 MC/CUMM (3.8-5.5); Red Cell Distribution Width 13.9 % (9.3-17.3); White Blood Count 11.1 T/CUMM (4-12)
[2020-07-28] MEDS: LEVOTHYROXINE 100 MCG TABLET PO SCH (05:55)
[2020-07-28 06:09] LABS: CKMB % 6.2 %
[2020-07-28 06:10] LABS: Osmolality,Calculated 275.1 MOS/KG (273-304)
[2020-07-28 06:12] LABS: Troponin I 11.5 NG/ML (0.00-0.045)
[2020-07-28] MEDS ORDERED: ENOXAPARIN 40 MG/0.4 ML SYRINGE SUBCUT SCH (09:00)
[2020-07-28] MEDS ORDERED: lisinopriL 5 MG TABLET PO SCH (09:00)
[2020-07-28 09:01] LABS: CKMB % 5.9 %
[2020-07-28 09:04] LABS: Troponin I 9.85 NG/ML (0.00-0.045)
[2020-07-28] MEDS: METOPROLOL TARTRATE 25 MG TABLET PO SCH (09:15)
[2020-07-28] MEDS: ASPIRIN CHEW 81 MG TABLET PO SCH (09:15)
[2020-07-28] MEDS: TICAGRELOR 90 MG TABLET PO SCH (09:15)
[2020-07-28] MEDS: INSULIN REGULAR 100 UNIT/ML SUBCUT SCH ×2 (09:15→14:37)
[2020-07-28] MEDS: PANTOPRAZOLE 40 MG TABLET PO SCH (09:15)
[2020-07-28] MEDS: DOCUSATE SODIUM 100 MG CAPSULE PO SCH (09:15)
[2020-07-28] MEDS ORDERED: ISOSORBIDE MONONITRATE 30 MG TABLET PO SCH (11:00)
[2020-07-28 15:25] VITALS: BP 126/58
== END 2020-07-28 14:40 | disposition home or self-care (01) | DRG 247 ==
LOC: EDUNIT# → EDBD → N.EDINP 14:23 → N.ED 14:23 → SUATTDRO 17:01 → N.TELEN 18:17
PROVIDERS: ADMIT Internal Medicine; ATTEND Internal Medicine
PROC: CLCCHCL (ICD-10-PCS; 2020-07-27 12:15)

== ENCOUNTER 2020-08-15 10:39 | Inpatient (IN) ==
[~2020-08-15 10:39] MED LIST: ASPIRIN 325 MG TABLET PO ONE; DIAZEPAM 5 MG TABLET PO ONE; MAGNESIUM SULF RIDER 2 GM in PREMIX 1 EACH IV PRN; POTASSIUM CHLORIDE RIDER 10 MEQ in PREMIX 1 EACH IV PRN; diphenhydrAMINE CAP 50 MG CAPSULE PO ONE
[2020-08-15 11:39] LABS: Basophils % 0.3 % (0.0-0.8); Eosinophils # 0.1 10*3/uL (0.0-0.87); Eosinophils % 1.4 % (0.00-10.9); Hematocrit 40.1 VOL% (35.7-47.0); Hemoglobin 12.6 GM/DL (12.0-16.0); Immature Granulocytes % 0.6 %; Immature Granulocytes Absolute 0.04 #; Lymphocytes # 1.6 10*3/uL (1.4-4.0); Lymphocytes % 22.7 % (21.3-54.2); Mean Corpuscular HGB Conc 31.4 GM/DL (32-36); Mean Corpuscular Volume 91.3 FL (87-102); Mean Platelet Volume 9.7 FL (9.6-12.0); Monocytes % 6.8 % (1.7-12.7); Neutrophils % 68.2 % (38.7-73.9); Platelet Count 189 T/CUMM (130-400); Red Blood Count 4.39 MC/CUMM (3.8-5.5); Red Cell Distribution Width 14.8 % (9.3-17.3); White Blood Count 7.2 T/CUMM (4-12)
[2020-08-15 11:48] LABS: PT Patient Result 10.9 SECS (9.8-11.9)
[2020-08-15] MEDS ORDERED: LIDOCAINE 1% 20 ML VIAL ONE (11:56)
[2020-08-15] MEDS ORDERED: HEPARIN/NACL 0.9% 2 UNITS/ML 1,000 ML IV ONE (11:56)
[2020-08-15] MEDS ORDERED: DIAZEPAM 5 MG TABLET ONE (11:58)
[2020-08-15] MEDS ORDERED: diphenhydrAMINE CAP 50 MG CAPSULE ONE (11:58)
[2020-08-15] MEDS ORDERED: ASPIRIN 325 MG TABLET ONE (11:58)
[2020-08-15] MEDS: SODIUM CHLORIDE 0.9% 1,000 ML IV SCH ×2 (12:01→16:00)
[2020-08-15 12:02] LABS: Albumin 3.4 G/DL (3.4-5.0); Bilirubin,Total 0.4 MG/DL (0.2-1.0); Calcium 9.3 MG/DL (8.5-10.1); Osmolality,Calculated 286.8 MOS/KG (273-304); Potassium 3.6 MMOL/L (3.5-5.1); Total Protein 7.5 G/DL (6.4-8.3)
[2020-08-15] MEDS ORDERED: HYDROmorphone 2 MG/1 ML VIAL ONE (12:33)
[2020-08-15] MEDS ORDERED: MIDAZOLAM 2 MG/2 ML VIAL ONE (12:33)
[2020-08-15] MEDS ORDERED: BIVALIRUDIN 250 MG VIAL IV ONE (13:00)
[2020-08-15] MEDS ORDERED: NITROGLYCERIN DRIP 50 MG/250 ML BOTTLE IV ONE (13:47)
[2020-08-15] MEDS ORDERED: HEPARIN/NACL 0.9% 2 UNITS/ML 500 ML IV ONE ×2 (14:19→15:31)
[2020-08-15] MEDS ORDERED: ATROPINE 1 MG/10 ML SYRINGE ONE (14:22)
[2020-08-15] MEDS ORDERED: TICAGRELOR 90 MG TABLET ONE (14:51)
[2020-08-15] MEDS ORDERED: NITROGLYCERIN SL 0.4 MG TABLET SL PRN (15:01)
[2020-08-15] MEDS ORDERED: HydrOXYzine PAMOATE 25 MG CAPSULE PO PRN (15:01)
[2020-08-15] MEDS ORDERED: POLYETHYLENE GLYCOL POWDER 17 GM PACK PO PRN (15:01)
[2020-08-15 16:17] LABS: Troponin I < 0.015 NG/ML (0.00-0.045)
[2020-08-15] MEDS ORDERED: DEXTROSE 50% 25 GM/50 ML VIAL IV PRN (16:29)
[2020-08-15] MEDS ORDERED: GLUCAGON 1 MG VIAL IM PRN (16:29)
[2020-08-15 17:05] LABS: Bilirubin,Urine Negative (Negative); Blood, Urine Small mg/dL (Negative); Glucose,Urine (UA) >=500 mg/dL (Negative); Ketones,Urine Negative (Negative); Mucus,Urine Occasional /LPF (Occasional); Nitrite,Urine Negative (Negative); Protein,Urine Negative; RBC,Urine 2 /HPF (0-4); Squamous Epithelial Cell,Urine Occasional /HPF (0-10); Urine Appearance CLEAR (Clear); Urine Color Yellow (Yellow); Urine Specific Gravity 1.043 (1.001-1.035); Urine Urobilinogen < 2.0 EU/DL (0.2-1.0); WBC,Urine 3 /HPF (0-6)
[2020-08-15] MEDS: INSULIN REGULAR 100 UNIT/ML SUBCUT SCH ×2 (17:25→21:04)
[2020-08-15] MEDS ORDERED: BISACODYL 5 MG TABLET PO PRN (17:29)
[2020-08-15] MEDS ORDERED: ZALEPLON 5 MG CAPSULE PO PRN (17:32)
[2020-08-15] MEDS ORDERED: traMADol 50 MG TABLET PO PRN (17:32)
[2020-08-15] MEDS ORDERED: KETOROLAC 30 MG/1 ML VIAL IV PRN (17:32)
[2020-08-15] MEDS ORDERED: BISACODYL 5 MG TABLET PO SCH (18:00)
[2020-08-15] MEDS: TICAGRELOR 90 MG TABLET PO SCH (21:03)
[2020-08-15] MEDS: METOPROLOL TARTRATE 25 MG TABLET PO SCH (21:03)
[2020-08-15] MEDS: ROSUVASTATIN 20 MG TABLET PO SCH (21:03)
[2020-08-15] MEDS: GABAPENTIN 300 MG CAPSULE PO SCH (21:03)
[2020-08-15] MEDS: INSULIN GLARGINE 100 UNIT/ML SUBCUT SCH (21:06)
[2020-08-15 23:50] LABS: CKMB % 7.9 %
[2020-08-15 23:57] LABS: Troponin I 12.2 NG/ML (0.00-0.045)
[2020-08-16] MEDS: SODIUM CHLORIDE 0.9% 1,000 ML IV SCH ×3 (04:00→14:46)
[2020-08-16 04:58] LABS: Basophils % 0.2 % (0.0-0.8); Eosinophils % 0.2 % (0.00-10.9); Hematocrit 39.8 VOL% (35.7-47.0); Hemoglobin 12.4 GM/DL (12.0-16.0); Immature Granulocytes % 0.6 %; Immature Granulocytes Absolute 0.07 #; Lymphocytes % 9.5 % (21.3-54.2); Mean Corpuscular HGB Conc 31.2 GM/DL (32-36); Mean Corpuscular Volume 91.1 FL (87-102); Mean Platelet Volume 9.3 FL (9.6-12.0); Monocytes % 5.1 % (1.7-12.7); Neutrophils % 84.4 % (38.7-73.9); Platelet Count 163 T/CUMM (130-400); Red Blood Count 4.37 MC/CUMM (3.8-5.5); Red Cell Distribution Width 14.6 % (9.3-17.3); White Blood Count 10.9 T/CUMM (4-12)
[2020-08-16 05:16] LABS: Calcium 8.5 MG/DL (8.5-10.1); Osmolality,Calculated 279.3 MOS/KG (273-304); Potassium 3.6 MMOL/L (3.5-5.1)
[2020-08-16] MEDS: LEVOTHYROXINE 100 MCG TABLET PO SCH (06:20)
[2020-08-16] MEDS: INSULIN REGULAR 100 UNIT/ML SUBCUT SCH ×4 (06:46→20:46)
[2020-08-16 07:36] LABS: CKMB % 8.8 %
[2020-08-16 07:37] LABS: Troponin I 26.8 NG/ML (0.00-0.045)
[2020-08-16] MEDS: GABAPENTIN 300 MG CAPSULE PO SCH ×2 (08:00→20:05)
[2020-08-16] MEDS: TICAGRELOR 90 MG TABLET PO SCH ×2 (08:01→20:05)
[2020-08-16] MEDS: ASPIRIN CHEW 81 MG TABLET PO SCH (08:01)
[2020-08-16] MEDS: DULoxetine 30 MG CAPSULE PO SCH (08:01)
[2020-08-16] MEDS: lisinopriL 10 MG TABLET PO SCH (08:01)
[2020-08-16] MEDS: ISOSORBIDE MONONITRATE 30 MG TABLET PO SCH (08:01)
[2020-08-16] MEDS: sitaGLIPtin 100 MG TABLET PO SCH (08:01)
[2020-08-16] MEDS: METOPROLOL TARTRATE 25 MG TABLET PO SCH ×2 (08:01→20:05)
[2020-08-16] MEDS ORDERED: lisinopriL 5 MG TABLET PO SCH (09:00)
[2020-08-16 12:58] LABS: CKMB % 7.9 %
[2020-08-16 13:04] LABS: Troponin I 24.8 NG/ML (0.00-0.045)
[2020-08-16 19:05] LABS: CKMB % 6.6 %
[2020-08-16 19:10] LABS: Troponin I 21.8 NG/ML (0.00-0.045)
[2020-08-16] MEDS: INSULIN GLARGINE 100 UNIT/ML SUBCUT SCH (20:05)
[2020-08-16] MEDS: ROSUVASTATIN 20 MG TABLET PO SCH (20:05)
[2020-08-17] MEDS: SODIUM CHLORIDE 0.9% 1,000 ML IV SCH (00:46)
[2020-08-17 01:11] LABS: Basophils % 0.1 % (0.0-0.8); Eosinophils % 0.3 % (0.00-10.9); Hematocrit 35.7 VOL% (35.7-47.0); Hemoglobin 11.5 GM/DL (12.0-16.0); Immature Granulocytes % 0.7 %; Immature Granulocytes Absolute 0.09 #; Lymphocytes # 1.1 10*3/uL (1.4-4.0); Lymphocytes % 8.8 % (21.3-54.2); Mean Corpuscular HGB Conc 32.2 GM/DL (32-36); Mean Corpuscular Volume 87.9 FL (87-102); Mean Platelet Volume 9.7 FL (9.6-12.0); Monocytes % 8.6 % (1.7-12.7); Neutrophils % 81.5 % (38.7-73.9); Platelet Count 156 T/CUMM (130-400); Red Blood Count 4.06 MC/CUMM (3.8-5.5); Red Cell Distribution Width 14.4 % (9.3-17.3); White Blood Count 12.3 T/CUMM (4-12)
[2020-08-17 01:28] LABS: Calcium 8.5 MG/DL (8.5-10.1); Osmolality,Calculated 276.7 MOS/KG (273-304); Potassium 3.5 MMOL/L (3.5-5.1)
[2020-08-17 01:32] LABS: CKMB % 4.6 %
[2020-08-17 01:36] LABS: Troponin I 16.1 NG/ML (0.00-0.045)
[2020-08-17] MEDS: LEVOTHYROXINE 100 MCG TABLET PO SCH (06:15)
[2020-08-17] MEDS: INSULIN REGULAR 100 UNIT/ML SUBCUT SCH ×2 (08:17→12:11)
[2020-08-17] MEDS: TICAGRELOR 90 MG TABLET PO SCH (08:17)
[2020-08-17] MEDS: DULoxetine 30 MG CAPSULE PO SCH (08:18)
[2020-08-17] MEDS: lisinopriL 10 MG TABLET PO SCH (08:18)
[2020-08-17] MEDS: METOPROLOL TARTRATE 25 MG TABLET PO SCH (08:18)
[2020-08-17] MEDS: GABAPENTIN 300 MG CAPSULE PO SCH (08:18)
[2020-08-17] MEDS: sitaGLIPtin 100 MG TABLET PO SCH (08:18)
[2020-08-17] MEDS: ISOSORBIDE MONONITRATE 30 MG TABLET PO SCH (08:18)
[2020-08-17] MEDS: ASPIRIN CHEW 81 MG TABLET PO SCH (08:18)
[2020-08-17 11:27] VITALS: BP 150/87
== END 2020-08-17 12:30 | disposition home health service (06) | DRG 246 ==
LOC: N.CL 10:39 → N.CC 16:17
PROVIDERS: ADMIT Internal Medicine Cardiovascular Disease; ATTEND Internal Medicine Cardiovascular Disease